=== PATIENT | female | born 1975 | race Hispanic/Latino ===

== ENCOUNTER 2018-09-29 15:50 | Observation (INO) | payer MEDICAID, OTHER ==
[2018-09-29 16:22] VITALS: BMI 32.8
[2018-09-29] MEDS ORDERED: Morphine 4 mg/ml ISec IVP STA ×2 (16:54→18:06)
[2018-09-29] MEDS ORDERED: Sodium Chloride 0.9% 1,000 ML IV STA (16:56)
[2018-09-29 17:04] LABS: URINE APPEARANCE TURBID (CLEAR); URINE BILIRUBIN NEGATIVE (NEGATIVE); URINE BLOOD LARGE (NEGATIVE); URINE COLOR RED (YELLOW); URINE GLUCOSE (UA) NEGATIVE (NEGATIVE); URINE LEUKOCYTE ESTERASE NEGATIVE Leu/uL (NEGATIVE); URINE PROTEIN 100 mg/dL (<30 mg/dL)
[2018-09-29 17:10] LABS: URINE BACTERIA SMALL (NEG); URINE RBC TNTC /hpf (0-2)
--- NOTE | 2018-09-29 17:16 | ED PDOC ---
Arrival/HPI - General Chief Complaint: Abdominal Pain Time Seen by Provider: 09/29/18 15:52 Historian: Patient - History of Present Illness Narrative History of Present Illness (Text): 09/29/18 17:13 42-year-old female with a history of UTI, pyelonephritis and kidney stones requiring with Dr. Jones he presents today with a sudden onset of left-sided flank pain radiating to the left lower abdomen with associated gross hematuria. Patient complaining of chills but denies fevers. Complaining of nausea without vomiting. No dizziness or weakness. No chest pain or shortness of breath. Patient states she was feeling a little ache in the back earlier today but then suddenly this afternoon developed severe sharp stabbing pain with radiation into the abdomen. Severity Level: Moderate Past Medical History - Provider Review Nursing Documentation Reviewed: Yes - Travel History Have you recently traveled outside [place] w/in the past 3 mons?: No - Infectious Disease Hx of Infectious Diseases: None - Cardiac Hx Cardiac Disorders: No - Pulmonary Hx Respiratory Disorders: No - Neurological Hx Neurological Disorder: No - HEENT Hx HEENT Disorder: No - Renal Hx Renal Disorder: Yes Hx Kidney Stones: Yes - Endocrine/Metabolic Hx Endocrine Disorders: No - Hematological/Oncological Hx Blood Disorders: No - Integumentary Hx Dermatological Disorder: No - Musculoskeletal/Rheumatological Hx Musculoskeletal Disorders: No - Gastrointestinal Hx Gastrointestinal Disorders: Yes Hx Gall Bladder Disease: Yes - Genitourinary/Gynecological Hx Genitourinary Disorders: No - Psychiatric Hx Psychophysiologic Disorder: Yes Hx Anxiety: Yes Hx Depression: Yes Hx Substance Use: No - Surgical History Hx Hysterectomy: Yes Family/Social History - Physician Review Nursing Documentation Reviewed: Yes Family/Social History: Unknown Family HX Smoking Status: Never Smoked Hx Alcohol Use: No Hx Substance Use: No Allergies/Home Meds Allergies/Adverse Reactions: Allergies ceftriaxone [From Rocephin] Allergy (Verified 09/29/18 16:58) VOMITING NSAIDS (Non-Steroidal Anti-Inflamma Allergy (Verified 09/29/18 17:00) RASH Penicillins Allergy (Verified 09/29/18 16:59) ANAPHYLAXIS Sulfa (Sulfonamide Antibiotics) Allergy (Verified 09/29/18 17:00) RASH Review of Systems - Review of Systems Constitutional: Other (chills). absent: Fatigue, Fevers Respiratory: absent: SOB, Cough Cardiovascular: absent: Chest Pain, Palpitations Gastrointestinal: Abdominal Pain, Nausea. absent: Constipation, Diarrhea, Vo miting Genitourinary Female: Dysuria, Hematuria. absent: Vaginal Bleeding, Vaginal Discharge Musculoskeletal: Back Pain. absent: Arthralgias, Neck Pain Skin: absent: Rash, Pruritis Neurological: absent: Headache, Dizziness Psychiatric: absent: Anxiety, Depression Physical Exam Vital Signs Reviewed: Yes Vital Signs Temp Pulse Resp BP Pulse Ox 09/29/18 16:22 98.1 F 96 H 19 125/79 96 Temperature: Afebrile Blood Pressure: Normal Pulse: Regular Respiratory Rate: Normal Appearance: Positive for: Well-Appearing, Non-Toxic, Comfortable Pain Distress: None Mental Status: Positive for: Alert and Oriented X 3 - Systems Exam Head: Present: Atraumatic Mouth: Present: Moist Mucous Membranes Neck: Present: Normal Range of Motion Respiratory/Chest: Present: Clear to Auscultation, Good Air Exchange. No: Respiratory Distress, Accessory Muscle Use Cardiovascular: Present: Regular Rate and Rhythm, Normal S1, S2. No: Murmurs Abdomen: Present: Tenderness (+ llq tenderness). No: Distention, Peritoneal Signs, Rebound, Guarding Back: Present: Normal Inspection, CVA Tenderness, Other (+ left flank tenderness). No: Midline Tenderness Upper Extremity: Present: Normal ROM Lower Extremity: Present: Normal ROM Neurological: Present: GCS=15, Speech Normal Skin: Present: Warm, Dry, Normal Color. No: Rashes Psychiatric: Present: Alert, Oriented x 3 Medical Decision Making ED Course and Treatment: 09/29/18 17:15 Patient is nontoxic well appearing with stable vital signs presenting with left flank and abdominal pain morphine given for pain zofran given for nausea. CBC: wnl CMP: wnl Lipase: wnl Urinalysis + blood, + nitrates, no leukocytes, TNTC wbcs CAT scan: FINDINGS: There is limited evaluation of the solid organs without the administration of IV contrast. LOWER THORAX: Mild bibasilar atelectasis. No visible pleural effusion or pneumothorax. LIVER: Hepatomegaly. Hypoattenuation of the liver compatible with hepatic steatosis. GALLBLADDER AND BILE DUCTS: Cholecystectomy. PANCREAS: Unremarkable unenhanced appearance. SPLEEN: Unremarkable unenhanced appearance. ADRENALS: Unremarkable unenhanced appearance. KIDNEYS AND URETERS: Mild fullness of bilateral renal collecting systems. No hydronephrosis or obstructing renal calculus. Punctate nonobstructing left renal calculi. 2 4 mm echogenic left renal hyperdense foci, indeterminate, possibly hemorrhagic cysts. BLADDER: Distended urinary bladder appears otherwise unremarkable. REPRODUCTIVE: Uterus is absent presumably due to hysterectomy. APPENDIX: The appendix is not identified. Surgical clips near the cecum; correlate for history of appendectomy. No secondary signs of acute appendicitis. BOWEL: The stomach is nondistended. Lack of oral contrast limits evaluation for bowel pathology. The bowel loops appear within normal limits of caliber without evidence of intestinal obstru ction. PERITONEUM: No significant free fluid. No definite free air. LYMPH NODES: No bulky lymphadenopathy identified. VASCULATURE: No atherosclerotic calcifications of the aorta. No aortic aneurysm. BONES: Suspect T11 vertebral body hemangioma. Degenerative changes. OTHER FINDINGS: None. IMPRESSION: Distended urinary bladder appears otherwise unremarkable. Mild fullness of the renal collecting systems. No evidence of obstructing calculi. Nonobstructing left renal calculi. Two 4 mm echogenic left renal hyperdense foci, indeterminate, possibly hemorrhagic cysts. Hepatomegaly. Hypoattenuation of the liver compatible with hepatic steatosis. Cholecystectomy. Hysterectomy. Evidence of appendectomy. Additional findings as above. Patient reassessment: pt with continued pain requiring multiple doses of morphine for pain control. Discussed all results with patient in depth pt reassessment; pt still with continued pain; will admit observational status to med/surg for intractable abdominal pain with gross hematuria. all aspects of this case were discussed the attending of record. case discussed with dr. velasquez in depth; accepts observational status admission. Impression: Abdominal pain, intractable, Gross hematuria admit observational status - Lab Interpretations Lab Results: Lab Results 09/29/18 16:54: Urine Color Red, Urine Appearance Turbid, Urine pH 5.0, Ur Specific [place] 1.025, Urine Protein 100 H, Urine Glucose (UA) Negative, Urine Ketones Trace H, Urine Blood Large H, Urine Nitrate Positive H, Urine Bilirubin Negative, Urine Urobilinogen 1.0 H, Ur Leukocyte Esterase Negative, Urine RBC Tntc, Urine WBC 2 - 5, Ur Epithelial Cells 6 - 8, Urine Bacteria Small - RAD Interpretation Radiology Orders: 09/29/18 16:57 ABD & PELVIS IV CONTRAST ONLY [CT] Stat - Medication Orders Current Medication Orders: Sodium Chloride (Sodium Chloride 0.9%) 1,000 mls @ 999 mls/hr IV .Q1H1M STA Stop: 09/29/18 17:56 Discontinued Medications Morphine Sulfate (Morphine) 4 mg IVP STAT STA Stop: 09/29/18 16:55 Ondansetron HCl (Zofran Inj) 4 mg IVP STAT STA Stop: 09/29/18 16:57 Disposition/Present on Arrival - Present on Arrival Any Indicators Present on Arrival: No History of DVT/PE: No History of Uncontrolled Diabetes: No Urinary Catheter: No History of Decub. Ulcer: No History Surgical Site Infection Following: None - Disposition Have Diagnosis and Disposition been Completed?: Yes Diagnosis: Intractable abdominal pain, Gross hematuria Disposition: HOSPITALIZED Disposition Time: 18:55 Patient Plan: Observation Patient Problems: Current Active Problems Problem Status Onset Gross hematuria Acute Intractable abdominal pain Acute Condition: FAIR Forms: [facility] ([place])
[2018-09-29 17:20] LABS: BASO # 0.02 K/mm3 (0.0-2.0); BASO % 0.5 % (0.0-3.0); EOS # 0.1 (0.0-0.7); EOS % 2.4 % (1.5-5.0); GRAN # 2.73 (1.4-6.5); GRAN % 65.1 % (50.0-68.0); HEMOGLOBIN 11.2 g/dL (12.0-16.0); LYMPH % 23.6 % (22.0-35.0); MEAN CELL VOLUME 87.7 fl (80.0-105.0); MEAN CORPUSCULAR HEMOGLOBIN 27.5 pg (25.0-35.0); MEAN CORPUSCULAR HGB CONC 31.3 g/dl (31.0-37.0); MEAN PLATELET VOLUME 9.7 fl (7.0-11.0); MONO # 0.4 (0.1-0.6); MONO % 8.4 % (1.0-6.0); RBC 4.08 10^6/uL (3.5-6.1); RED CELL DISTRIBUTION WIDTH 14.4 % (11.5-14.5); WHITE BLOOD COUNT 4.2 10^3/uL (4.5-11.0)
[2018-09-29 17:30] LABS: ALB/GLOB RATIO 1.3 (1.1-1.8); ALBUMIN 4.1 g/dL (3.0-4.8); ALT/SGPT 27 U/L (7-56); AST/SGOT 29 U/L (14-36); BLOOD UREA NITROGEN 10 mg/dL (7-21); CALCIUM 9.8 mg/dL (8.4-10.5); GFR NON-AFRICAN AMERICAN > 60; LIPASE 43 U/L (23-300)
--- NOTE | 2018-09-29 18:45 | CT ---
PROCEDURE: CT Abdomen and Pelvis without Oral or IV contrast. HISTORY: left flank pain, hematuria COMPARISON: None available. TECHNIQUE: Contiguous axial images of the abdomen and pelvis. No oral or IV contrast administered. Coronal and Sagittal reformats generated and reviewed. Radiation dose: Total exam DLP = 967.81 mGy-cm. This CT exam was performed using one or more of the following dose reduction techniques: Automated exposure control, adjustment of the mA and/or kV according to patient size, and/or use of iterative reconstruction technique. FINDINGS: There is limited evaluation of the solid organs without the administration of IV contrast. LOWER THORAX: Mild bibasilar atelectasis. No visible pleural effusion or pneumothorax. LIVER: Hepatomegaly. Hypoattenuation of the liver compatible with hepatic steatosis. GALLBLADDER AND BILE DUCTS: Cholecystectomy. PANCREAS: Unremarkable unenhanced appearance. SPLEEN: Unremarkable unenhanced appearance. ADRENALS: Unremarkable unenhanced appearance. KIDNEYS AND URETERS: Mild fullness of bilateral renal collecting systems. No hydronephrosis or obstructing renal calculus. Punctate nonobstructing left renal calculi. 2 4 mm echogenic left renal hyperdense foci, indeterminate, possibly hemorrhagic cysts. BLADDER: Distended urinary bladder appears otherwise unremarkable. REPRODUCTIVE: Uterus is absent presumably due to hysterectomy. APPENDIX: The appendix is not identified. Surgical clips near the cecum; correlate for history of appendectomy. No secondary signs of acute appendicitis. BOWEL: The stomach is nondistended. Lack of oral contrast limits evaluation for bowel pathology. The bowel loops appear within normal limits of caliber without evidence of intestinal obstruction. PERITONEUM: No significant free fluid. No definite free air. LYMPH NODES: No bulky lymphadenopathy identified. VASCULATURE: No atherosclerotic calcifications of the aorta. No aortic aneurysm. BONES: Suspect T11 vertebral body hemangioma. Degenerative changes. OTHER FINDINGS: None. IMPRESSION: Distended urinary bladder appears otherwise unremarkable. Mild fullness of the renal collecting systems. No evidence of obstructing calculi. Nonobstructing left renal calculi. Two 4 mm echogenic left renal hyperdense foci, indeterminate, possibly hemorrhagic cysts. Hepatomegaly. Hypoattenuation of the liver compatible with hepatic steatosis. Cholecystectomy. Hysterectomy. Evidence of appendectomy. Additional findings as above.
--- NOTE | 2018-09-29 21:09 | CP.PCM.HP ---
<John Mo - Last Filed: 09/30/18 00:50> History of Present Illness - History of Present Illness History of Present Illness: John Mo PGY1 History and Physical for Dr Noelle Nascimento Pt is a 42 yo female with a PMH of UTI, pyelonephritis, nephrolithiasis who presents complaining of sudden onset of left-sided flank pain which is sharp/ stabbing and radiating to the left abdomen which started this morning at 9:30am. Pt reports blood in the urine, some burning with urination, and the feeling that she is unable to completely void all of the urine from her bladder. Pt denies fever or chills. Pt states she she has experienced some nausea but denies vomiting. Pt states she has trouble finding a comfortable position to relieved the pain. She states this pain is similar to when she has had kidney stones in the past. A 12 point ROS was obtained and added to the HPI where appropriate. PMH: anxiety, depression, PE (on anticoag for 3 years, no longer taking) PSH: hysterectomy 2014, lap edilberto 2014, appendectomy 2014, lithotrypsy 2000, tubal ligation 2000 FH: mother 67, healthy. father 63 prostate CA SH: denies tobacco, alcohol, illicit drugs Home meds: effexor 150 Allergies: PNC "throat closes", sulfa hives, NSAIDS hives, rocephin vomiting PMD: denies Present on Admission - Present on Admission Any Indicators Present on Admission: No Review of Systems - Review of Systems Review of Systems: a 12 point ROS was obtained and added to the HPI where appropriate Past Patient History - Infectious Disease Hx of Infectious Diseases: None - Past Social History Smoking Status: Never Smoked - CARDIAC Hx Cardiac Disorders: No - PULMONARY Hx Respiratory Disorders: No - NEUROLOGICAL Hx Neurological Disorder: No - HEENT Hx HEENT Problems: No - RENAL Hx Chronic Kidney Disease: Yes Hx Kidney Stones: Yes - ENDOCRINE/METABOLIC Hx Endocrine Disorders: No - HEMATOLOGICAL/ONCOLOGICAL Hx Blood Disorders: No - INTEGUMENTARY Hx Dermatological Problems: No - MUSCULOSKELETAL/RHEUMATOLOGICAL Hx Musculoskeletal Disorders: No - GASTROINTESTINAL Hx Gastrointestinal Disorders: Yes Hx Gall Bladder Disease: Yes - GENITOURINARY/GYNECOLOGICAL Hx Genitourinary Disorders: No - PSYCHIATRIC Hx Psychophysiologic Disorder: Yes Hx Anxiety: Yes Hx Depression: Yes Hx Substance Use: No - SURGICAL HISTORY Hx Hysterectomy: Yes Meds Allergies/Adverse Reactions: Allergies Allergy/AdvReac Type Severity Reaction Status Date / Time ceftriaxone [From Rocephin] Allergy VOMITING Verified 09/29/18 16:58 NSAIDS (Non-Steroidal Allergy RASH Verified 09/29/18 17:00 Anti-Inflamma Penicillins Allergy ANAPHYLAXIS Verified 09/29/18 16:59 Sulfa (Sulfonamide Allergy RASH Verified 09/29/18 17:00 Antibiotics) Physical Exam - Constitutional Appears: Non-toxic, No Acute Distress - Head Exam Head Exam: ATRAUMATIC, NORMAL INSPECTION, NORMOCEPHALIC - Eye Exam Eye Exam: EOMI - ENT Exam ENT Exam: Mucous Membranes Moist - Neck Exam Neck exam: Positive for: Full Rom - Respiratory Exam Respiratory Exam: Clear to Auscultation Bilateral. absent: Accessory Muscle Use, Wheezes, Respiratory Distress - Cardiovascular Exam Cardiovascular Exam: RRR, +S1, +S2. absent: Diastolic murmur, Systolic Murmur - GI/Abdominal Exam GI & Abdominal Exam: Normal Bowel Sounds, Soft, Tenderness - Extremities Exam Extremities exam: Positive for: full ROM, pedal edema, pedal pulses present. Negative for: calf tenderness - Back Exam Back exam: CVA tenderness (L), FULL ROM. absent: CVA tenderness (R) - Neurological Exam Neurological exam: Alert, Oriented x3 - Psychiatric Exam Psychiatric exam: Normal Affect, Normal Mood - Skin Skin Exam: Dry, Intact, Warm Results - Vital Signs Recent Vital Signs: Last Vital Signs Temp 98.2 F 09/29/18 18:01 Pulse 81 09/29/18 18:01 Resp 16 09/29/18 18:01 BP 131/71 09/29/18 18:01 Pulse Ox 95 09/29/18 18:01 - Labs Result Diagrams: 09/29/18 17:04 09/29/18 17:04 Labs: Laboratory Results - last 24 hr 09/29/18 09/29/18 09/29/18 16:54 17:04 17:04 WBC 4.2 L RBC 4.08 Hgb 11.2 L Hct 35.8 L MCV 87.7 MCH 27.5 MCHC 31.3 RDW 14.4 Plt Count 262 MPV 9.7 Gran % 65.1 Lymph % (Auto) 23.6 [place] % (Auto) 8.4 H Eos % (Auto) 2.4 Baso % (Auto) 0.5 Gran # 2.73 Lymph # (Auto) 1.0 L [place] # (Auto) 0.4 Eos # (Auto) 0.1 Baso # (Auto) 0.02 Sodium 141 Potassium 4.4 Chloride 104 Carbon Dioxide 30 Anion Gap 12 BUN 10 Creatinine 0.9 Est GFR ( Amer) > 60 Est GFR (Non-Af Amer) > 60 Random Glucose 95 Calcium 9.8 Total Bilirubin 0.2 AST 29 ALT 27 Alkaline Phosphatase 70 Total Protein 7.1 Albumin 4.1 Globulin 3.0 Albumin/Globulin Ratio 1.3 Lipase 43 Urine Color Red Urine Appearance Turbid Urine pH 5.0 Ur Specific [place] 1.025 Urine Protein 100 H Urine Glucose (UA) Negative Urine Ketones Trace H Urine Blood Large H Urine Nitrate Positive H Urine Bilirubin Negative Urine Urobilinogen 1.0 H Ur Leukocyte Esterase Negative Urine RBC Tntc Urine WBC 2 - 5 Ur Epithelial Cells 6 - 8 Urine Bacteria Small Assessment & Plan - Assessment and Plan (Free Text) Assessment: Pt is a 42 yo female with a PMH of UTI, pyelonephritis, nephrolithiasis who presents complaining of sudden onset of left-sided flank pain which is sharp/ stabbing and radiating to the left abdomen which started this morning at 9:30am. Plan: Hematuria with ?nephrolithiasis - urine cultures - levaquin - morphine - zofran - strain urine for calculi - urology consulted, Dr Fiore Depression/ Anxiety - effexor 150, called [facility] they did not have a patient profile for her, on hold for now Ppx/ Diet - pepcid - SCD, no anticoagulant due to hematuria - regular diet Pt seen, examined, assessment and plan discussed with Dr Pily Mo PGY1 - Date & Time Date: 09/29/18 Time: 21:16 <Noelle Nascimento - Last Filed: 09/30/18 01:40> Results - Vital Signs Recent Vital Signs: Last Vital Signs Temp 98.2 F 09/29/18 18:01 Pulse 76 09/29/18 21:58 Resp 18 09/30/18 00:02 BP 112/65 09/29/18 21:58 Pulse Ox 100 09/29/18 21:58 - Labs Result Diagrams: 09/29/18 17:04 09/29/18 17:04 Labs: Laboratory Results - last 24 hr 11/13/18 11/13/18 11/13/18 16:54 17:04 17:04 WBC 4.2 L RBC 4.08 Hgb 11.2 L Hct 35.8 L MCV 87.7 MCH 27.5 MCHC 31.3 RDW 14.4 Plt Count 262 MPV 9.7 Gran % 65.1 Lymph % (Auto) 23.6 [place] % (Auto) 8.4 H Eos % (Auto) 2.4 Baso % (Auto) 0.5 Gran # 2.73 Lymph # (Auto) 1.0 L [place] # (Auto) 0.4 Eos # (Auto) 0.1 Baso # (Auto) 0.02 Sodium 141 Potassium 4.4 Chloride 104 Carbon Dioxide 30 Anion Gap 12 BUN 10 Creatinine 0.9 Est GFR ( Amer) > 60 Est GFR (Non-Af Amer) > 60 Random Glucose 95 Calcium 9.8 Total Bilirubin 0.2 AST 29 ALT 27 Alkaline Phosphatase 70 Total Protein 7.1 Albumin 4.1 Globulin 3.0 Albumin/Globulin Ratio 1.3 Lipase 43 Urine Color Red Urine Appearance Turbid Urine pH 5.0 Ur Specific [place] 1.025 Urine Protein 100 H Urine Glucose (UA) Negative Urine Ketones Trace H Urine Blood Large H Urine Nitrate Positive H Urine Bilirubin Negative Urine Urobilinogen 1.0 H Ur Leukocyte Esterase Negative Urine RBC Tntc Urine WBC 2 - 5 Ur Epithelial Cells 6 - 8 Urine Bacteria Small Attending/Attestation - Attestation I have personally seen and examined this patient.: Yes I have fully participated in the care of the patient.: Yes I have reviewed all pertinent clinical information: Yes Notes (Text): 09/30/18 01:38 Pt seen with the resident by the bedside. Case discussed in detail. Agree with examination findings,documentation and plan of treatment.
[2018-09-29] MEDS ORDERED: Sodium Chloride 0.9% 1,000 ML IV SCH (21:30)
[2018-09-29] MEDS ORDERED: levoFLOXacin 750 mg in D5W 750 MG/150 ML BAG IVPB STA (21:48)
[2018-09-29] MEDS: Morphine 2 mg/ml ISec IVP PRN (22:01)
[2018-09-30] MEDS: Morphine 2 mg/ml ISec IVP PRN ×6 (01:50→23:29)
[2018-09-30 07:07] LABS: BASO # 0.02 K/mm3 (0.0-2.0); BASO % 0.6 % (0.0-3.0); EOS # 0.1 (0.0-0.7); EOS % 3.4 % (1.5-5.0); GRAN # 1.9 (1.4-6.5); GRAN % 59.7 % (50.0-68.0); HEMOGLOBIN 10.7 g/dL (12.0-16.0); LYMPH # 0.9 (1.2-3.4); LYMPH % 28.5 % (22.0-35.0); MEAN CELL VOLUME 87.7 fl (80.0-105.0); MEAN CORPUSCULAR HEMOGLOBIN 28.1 pg (25.0-35.0); MEAN PLATELET VOLUME 9.6 fl (7.0-11.0); MONO # 0.3 (0.1-0.6); MONO % 7.8 % (1.0-6.0); RBC 3.81 10^6/uL (3.5-6.1); RED CELL DISTRIBUTION WIDTH 14.3 % (11.5-14.5); WHITE BLOOD COUNT 3.2 10^3/uL (4.5-11.0)
[2018-09-30 07:33] LABS: ALB/GLOB RATIO 1.2 (1.1-1.8); ALBUMIN 3.5 g/dL (3.0-4.8); ALT/SGPT 28 U/L (7-56); AST/SGOT 23 U/L (14-36); BLOOD UREA NITROGEN 7 mg/dL (7-21); CALCIUM 8.6 mg/dL (8.4-10.5); GFR NON-AFRICAN AMERICAN > 60
[2018-09-30] MEDS: levoFLOXacin 500 mg in D5W 500 MG/100 ML BAG IVPB SCH (09:49)
[2018-09-30] MEDS: Venlafaxine 75 mg ER Cap PO SCH (17:29)
--- NOTE | 2018-09-30 20:20 | PN ---
DATE: 09/30/2018 SUBJECTIVE: The patient was admitted with abdominal pain, history of UTIs in the past, pyelonephritis and kidney stones. She was complaining of sudden sharp stabbing left abdominal pain and reports some burning on urination feeling that she was not emptying completely. Does report some nausea, but no vomiting. PAST MEDICAL HISTORY: Significant for anxiety, depression and pulmonary embolus. PAST SURGICAL HISTORY: Hysterectomy, lap edilberto, appendectomy, lithotripsy, tubal ligation, history of chronic kidney disease, and no smoking history. The patient had a CT scan of the abdomen and pelvis, which showed the kidneys, there is mild fullness bilaterally but no hydronephrosis. There was no obstructing renal calculi noted. There was a punctate nonobstructing left renal calculus indeterminate 2 mm left renal lesion likely a hemorrhagic cyst. The urinary bladder appeared somewhat distended. LABORATORY DATA: The patient's creatinine 0.7 with a GFR greater than 60. WBC count was normal. Urinalysis showed positive nitrites, too numerous to count RBC, 2 to 5 WBC, 6 to 8 epithelial cells, and positive for protein. IMPRESSION AND PLAN: The patient does not have renal colic. There is no evidence of any obstructing stones. As for the hematuria, this is likely from cystitis. The patient should be treated with appropriate antibiotics while awaiting the results of her urine culture. She has received IV Levaquin and now on oral Levaquin. Unclear what the source of the patient's pain is; however, it does not appear to be from renal colic or from pyelonephritis possibly from a cystitis with a distended bladder. Recommend the patient to have a postvoid residual done tomorrow. The patient does not need any acute urologic intervention at this time. However, she should have outpatient urologic followup to recheck her urine as well as regarding her history of stones. Sonny Fiore MD
[2018-10-01] MEDS: Morphine 2 mg/ml ISec IVP PRN ×3 (04:37→13:44)
[2018-10-01 07:18] LABS: BASO # 0.02 K/mm3 (0.0-2.0); BASO % 0.5 % (0.0-3.0); EOS # 0.1 (0.0-0.7); EOS % 2.4 % (1.5-5.0); GRAN # 2.71 (1.4-6.5); GRAN % 64.4 % (50.0-68.0); HEMOGLOBIN 11.5 g/dL (12.0-16.0); LYMPH # 1.1 (1.2-3.4); MEAN CELL VOLUME 87.2 fl (80.0-105.0); MEAN CORPUSCULAR HEMOGLOBIN 27.7 pg (25.0-35.0); MEAN CORPUSCULAR HGB CONC 31.8 g/dl (31.0-37.0); MEAN PLATELET VOLUME 9.7 fl (7.0-11.0); MONO # 0.3 (0.1-0.6); MONO % 6.7 % (1.0-6.0); RBC 4.15 10^6/uL (3.5-6.1); RED CELL DISTRIBUTION WIDTH 14.4 % (11.5-14.5); WHITE BLOOD COUNT 4.2 10^3/uL (4.5-11.0)
[2018-10-01 08:41] LABS: ALB/GLOB RATIO 1.4 (1.1-1.8); ALBUMIN 4.1 g/dL (3.0-4.8); ALT/SGPT 23 U/L (7-56); AST/SGOT 22 U/L (14-36); BLOOD UREA NITROGEN 9 mg/dL (7-21); CALCIUM 9.5 mg/dL (8.4-10.5); GFR NON-AFRICAN AMERICAN > 60
[2018-10-01 09:32] VITALS: BP 122/82; PULSE 65; RESP 20; TEMP 98.3; O2SAT 98
[2018-10-01] MEDS: levoFLOXacin 500 mg in D5W 500 MG/100 ML BAG IVPB SCH (10:34)
[2018-10-01] MEDS: Venlafaxine 75 mg ER Cap PO SCH (10:34)
--- NOTE | 2018-10-01 18:15 | CP.PCM.DIS ---
<Pal,Aamir - Last Filed: 10/01/18 21:48> Provider - Provider Date of Admission: 09/29/18 19:28 Attending physician: Fauzia Cuevas MD Time Spent in preparation of Discharge (in minutes): 35 Hospital Course - Lab Results Lab Results: Most Recent Lab Values WBC 4.2 10^3/uL (4.5-11.0) L D 10/01/18 07:00 RBC 4.15 10^6/uL (3.5-6.1) 10/01/18 07:00 Hgb 11.5 g/dL (12.0-16.0) L 10/01/18 07:00 Hct 36.2 % (36.0-48.0) 10/01/18 07:00 MCV 87.2 fl (80.0-105.0) 10/01/18 07:00 MCH 27.7 pg (25.0-35.0) 10/01/18 07:00 MCHC 31.8 g/dl (31.0-37.0) 10/01/18 07:00 RDW 14.4 % (11.5-14.5) 10/01/18 07:00 Plt Count 260 10^3/uL (120.0-450.0) 10/01/18 07:00 MPV 9.7 fl (7.0-11.0) 10/01/18 07:00 Gran % 64.4 % (50.0-68.0) 10/01/18 07:00 Lymph % (Auto) 26.0 % (22.0-35.0) 10/01/18 07:00 Christian % (Auto) 6.7 % (1.0-6.0) H 10/01/18 07:00 Eos % (Auto) 2.4 % (1.5-5.0) 10/01/18 07:00 Baso % (Auto) 0.5 % (0.0-3.0) 10/01/18 07:00 Gran # 2.71 (1.4-6.5) 10/01/18 07:00 Lymph # (Auto) 1.1 (1.2-3.4) L 10/01/18 07:00 Christian # (Auto) 0.3 (0.1-0.6) 10/01/18 07:00 Eos # (Auto) 0.1 (0.0-0.7) 10/01/18 07:00 Baso # (Auto) 0.02 K/mm3 (0.0-2.0) 10/01/18 07:00 APTT 28.8 Seconds (25.1-36.5) 09/30/18 06:45 Sodium 141 mmol/L (132-148) 10/01/18 07:00 Potassium 4.1 mmol/L (3.6-5.0) 10/01/18 07:00 Chloride 105 mmol/L (98-107) 10/01/18 07:00 Carbon Dioxide 28 mmol/L (21-33) 10/01/18 07:00 Anion Gap 13 (10-20) 10/01/18 07:00 BUN 9 mg/dL (7-21) 10/01/18 07:00 Creatinine 0.8 mg/dl (0.7-1.2) 10/01/18 07:00 Est GFR ( Amer) > 60 10/01/18 07:00 Est GFR (Non-Af Amer) > 60 10/01/18 07:00 Random Glucose 99 mg/dL (70-110) 10/01/18 07:00 Calcium 9.5 mg/dL (8.4-10.5) 10/01/18 07:00 Phosphorus 4.4 mg/dL (2.5-4.5) 09/30/18 06:45 Magnesium 2.0 mg/dL (1.7-2.2) 09/30/18 06:45 Total Bilirubin 0.2 mg/dL (0.2-1.3) 10/01/18 07:00 AST 22 U/L (14-36) 10/01/18 07:00 ALT 23 U/L (7-56) 10/01/18 07:00 Alkaline Phosphatase 69 U/L (38-126) 10/01/18 07:00 Total Protein 7.0 g/dL (5.8-8.3) 10/01/18 07:00 Albumin 4.1 g/dL (3.0-4.8) 10/01/18 07:00 Globulin 2.9 gm/dL 10/01/18 07:00 Albumin/Globulin Ratio 1.4 (1.1-1.8) 10/01/18 07:00 Lipase 43 U/L (23-300) 09/29/18 17:04 Urine Color Red (YELLOW) 09/29/18 16:54 Urine Appearance Turbid (CLEAR) 09/29/18 16:54 Urine pH 5.0 (4.7-8.0) 09/29/18 16:54 Ur Specific [place] 1.025 (1.005-1.035) 09/29/18 16:54 Urine Protein 100 mg/dL (<30 mg/dL) H 09/29/18 16:54 Urine Glucose (UA) Negative mg/dL (NEGATIVE) 09/29/18 16:54 Urine Ketones Trace mg/dL (NEGATIVE) H 09/29/18 16:54 Urine Blood Large (NEGATIVE) H 09/29/18 16:54 Urine Nitrate Positive (NEGATIVE) H 09/29/18 16:54 Urine Bilirubin Negative (NEGATIVE) 09/29/18 16:54 Urine Urobilinogen 1.0 E.U./dL (<1 E.U./dL) H 09/29/18 16:54 Ur Leukocyte Esterase Negative [place]/uL (NEGATIVE) 09/29/18 16:54 Urine RBC Tntc /hpf (0-2) 09/29/18 16:54 Urine WBC 2 - 5 /hpf (0-6) 09/29/18 16:54 Ur Epithelial Cells 6 - 8 /hpf (0-5) 09/29/18 16:54 Urine Bacteria Small (NEG) 09/29/18 16:54 - Hospital Course Hospital Course: Aamir Harris, PGY1 Discharge Summary for Dr. Cuevas Patient is a 42 y/o female with a PMHx of UTI, pyelonephritis, nephrolithiasis, anxiety, depression who presented with sudden onset of left-sided flank pain which is sharp/ stabbing and radiating to the left abdomen. She reports blood in the urine, some burning with urination, and the feeling that she is unable to completely void all of the urine from her bladder. Patient denied fever or chills. She states she she has experienced some nausea but denies vomiting. She states this pain is similar to when she has had kidney stones in the past. Patient was evaluated by the medical team. She had CT abdomen/Pelvis that showed distended urinary bladder, non-obstructing left renal calculi, and two 4 mm echogenic left renal hyperdense foci possibly hemorrhagic cysts. Patient's urine analysis was also +blood/rbc. Patient was started on levaquin IV, pepcid, and morphine for pain control. Urology was consulted. Urology determined that patient does not have renal colic or obstructing stones. Hematuria is likely from cystitis. She was cleared from a urology standpoint and should follow up as outpatient. Patient clinically improved since admission with no lab abnormalities, fevers, or leukocytosis. She is stable for discharge home on ciprofloxacin for 8 more days to complete antibiotic coverage. Discharge Exam - Head Exam Head Exam: ATRAUMATIC, NORMAL INSPECTION, NORMOCEPHALIC - Eye Exam Eye Exam: EOMI, Normal appearance, PERRL Pupil Exam: NORMAL ACCOMODATION - ENT Exam ENT Exam: Mucous Membranes Moist, Normal Exam - Respiratory Exam Respiratory Exam: Clear to PA & Lateral. absent: Rales, Rhonchi, Wheezes, Respiratory Distress - GI/Abdominal Exam GI & Abdominal Exam: Normal Bowel Sounds. absent: Distended, Firm, Guarding, Rebound, Rigid - Extremities Exam Extremities exam: full ROM, normal inspection, pedal pulses present - Back Exam Back exam: CVA tenderness (L) (Mild tenderness ) - Neurological Exam Neurological exam: Alert, Oriented x3 - Psychiatric Exam Psychiatric exam: Normal Affect, Normal Mood - Skin Skin Exam: Dry, Intact, Normal Color, Warm Discharge Plan - Discharge Medications Prescriptions: RX: Ciprofloxacin [Cipro] 500 mg PO BID #16 tab - Follow Up Plan Condition: FAIR Disposition: HOME/ ROUTINE Instructions: Acute Abdomen (Belly Pain), Adult (DC), Nausea and Vomiting, Adult (DC), Flu Vaccine, Acute Hematuria (DC) Additional Instructions: 1. Follow up for your appointment on 10/09 at 2:30 pm - [facility] ( ). 2. Follow up with Urologist within 1-2 weeks to have urine collection and further evaluation 3. You are prescribed a new medication: Ciprofloxacin 500mg twice a day for 8 days total. 4. Return to the nearest emergency department if you experience worsening of your symptoms, chest pain, inability to urinate, significant flank pain, unrelenting fever. Referrals: Sonny Fiore MD [Staff Provider] - <Fauzia Cuevas - Last Filed: 10/03/18 13:50> Provider - Provider Date of Admission: 09/29/18 19:28 Attending physician: Fauzia Cuevas MD Hospital Course - Lab Results Lab Results: Micro Results 09/29/18 16:54 Urine Urine Culture - Final No Growth (<1,000 CFU/ML) Most Recent Lab Values WBC 4.2 10^3/uL (4.5-11.0) L D 10/01/18 07:00 RBC 4.15 10^6/uL (3.5-6.1) 10/01/18 07:00 Hgb 11.5 g/dL (12.0-16.0) L 10/01/18 07:00 Hct 36.2 % (36.0-48.0) 10/01/18 07:00 MCV 87.2 fl (80.0-105.0) 10/01/18 07:00 MCH 27.7 pg (25.0-35.0) 10/01/18 07:00 MCHC 31.8 g/dl (31.0-37.0) 10/01/18 07:00 RDW 14.4 % (11.5-14.5) 10/01/18 07:00 Plt Count 260 10^3/uL (120.0-450.0) 10/01/18 07:00 MPV 9.7 fl (7.0-11.0) 10/01/18 07:00 Gran % 64.4 % (50.0-68.0) 10/01/18 07:00 Lymph % (Auto) 26.0 % (22.0-35.0) 10/01/18 07:00 Christian % (Auto) 6.7 % (1.0-6.0) H 10/01/18 07:00 Eos % (Auto) 2.4 % (1.5-5.0) 10/01/18 07:00 Baso % (Auto) 0.5 % (0.0-3.0) 10/01/18 07:00 Gran # 2.71 (1.4-6.5) 10/01/18 07:00 Lymph # (Auto) 1.1 (1.2-3.4) L 10/01/18 07:00 Christian # (Auto) 0.3 (0.1-0.6) 10/01/18 07:00 Eos # (Auto) 0.1 (0.0-0.7) 10/01/18 07:00 Baso # (Auto) 0.02 K/mm3 (0.0-2.0) 10/01/18 07:00 APTT 28.8 Seconds (25.1-36.5) 09/30/18 06:45 Sodium 141 mmol/L (132-148) 10/01/18 07:00 Potassium 4.1 mmol/L (3.6-5.0) 10/01/18 07:00 Chloride 105 mmol/L (98-107) 10/01/18 07:00 Carbon Dioxide 28 mmol/L (21-33) 10/01/18 07:00 Anion Gap 13 (10-20) 10/01/18 07:00 BUN 9 mg/dL (7-21) 10/01/18 07:00 Creatinine 0.8 mg/dl (0.7-1.2) 10/01/18 07:00 Est GFR ( Amer) > 60 10/01/18 07:00 Est GFR (Non-Af Amer) > 60 10/01/18 07:00 Random Glucose 99 mg/dL (70-110) 10/01/18 07:00 Calcium 9.5 mg/dL (8.4-10.5) 10/01/18 07:00 Phosphorus 4.4 mg/dL (2.5-4.5) 09/30/18 06:45 Magnesium 2.0 mg/dL (1.7-2.2) 09/30/18 06:45 Total Bilirubin 0.2 mg/dL (0.2-1.3) 10/01/18 07:00 AST 22 U/L (14-36) 10/01/18 07:00 ALT 23 U/L (7-56) 10/01/18 07:00 Alkaline Phosphatase 69 U/L (38-126) 10/01/18 07:00 Total Protein 7.0 g/dL (5.8-8.3) 10/01/18 07:00 Albumin 4.1 g/dL (3.0-4.8) 10/01/18 07:00 Globulin 2.9 gm/dL 10/01/18 07:00 Albumin/Globulin Ratio 1.4 (1.1-1.8) 10/01/18 07:00 Lipase 43 U/L (23-300) 09/29/18 17:04 Urine Color Red (YELLOW) 09/29/18 16:54 Urine Appearance Turbid (CLEAR) 09/29/18 16:54 Urine pH 5.0 (4.7-8.0) 09/29/18 16:54 Ur Specific [place] 1.025 (1.005-1.035) 09/29/18 16:54 Urine Protein 100 mg/dL (<30 mg/dL) H 09/29/18 16:54 Urine Glucose (UA) Negative mg/dL (NEGATIVE) 09/29/18 16:54 Urine Ketones Trace mg/dL (NEGATIVE) H 09/29/18 16:54 Urine Blood Large (NEGATIVE) H 09/29/18 16:54 Urine Nitrate Positive (NEGATIVE) H 09/29/18 16:54 Urine Bilirubin Negative (NEGATIVE) 09/29/18 16:54 Urine Urobilinogen 1.0 E.U./dL (<1 E.U./dL) H 09/29/18 16:54 Ur Leukocyte Esterase Negative [place]/uL (NEGATIVE) 09/29/18 16:54 Urine RBC Tntc /hpf (0-2) 09/29/18 16:54 Urine WBC 2 - 5 /hpf (0-6) 09/29/18 16:54 Ur Epithelial Cells 6 - 8 /hpf (0-5) 09/29/18 16:54 Urine Bacteria Small (NEG) 09/29/18 16:54 Attending/Attestation - Attestation I have personally seen and examined this patient.: Yes I have fully participated in the care of the patient.: Yes I have reviewed all pertinent clinical information, including history, physical exam and plan: Yes Notes (Text): 10/03/18 13:46 Patient was seen and examined with lpn medical assistant. Patient is feeling better.Flank pain has resolved.There is no further hematuria. Patient is afebrile. Urology evaluation is appreciated. Patient will be discharged home on oral antibiotics for possible cystitis.She will follow up with PCP and Urology. Management plan was discussed in detail with patient. Education was provided.
[2018-10-02] MEDS ORDERED: levoFLOXacin 500 MG TAB PO SCH (10:00)
== END 2018-10-01 15:39 | disposition home or self-care (01) ==
LOC: ED 15:50 → ERH 19:28 → 5RSO 22:53
PROVIDERS: ADMIT Hospitalist; ATTEND Internal Medicine
DX: N30.91 Cystitis, unspecified with hematuria (principal); N18.9 Chronic kidney disease, unspecified; K76.0 Fatty (change of) liver, not elsewhere classified; F32.9 Major depressive disorder, single episode, unspecified; F41.9 Anxiety disorder, unspecified; Z87.440 Personal history of urinary (tract) infections; Z86.711 Personal history of pulmonary embolism; Z87.442 Personal history of urinary calculi; Z88.0 Allergy status to penicillin; Z88.2 Allergy status to sulfonamides
CPT/HCPCS: 36415; 74176; 80053; 81001; 83690; 83735; 84100; 85025; 85730; 87086; 96361; 96374; 96375; 96376; 99284; G0378; J2270; J2405; J7030